=== PATIENT | female | born 1960 | race Native Hawaiian/Other Pacific Islander ===

== ENCOUNTER 2019-03-16 09:38 | Outpatient (CLI) | payer BC | END 2019-03-16 21:36 | disposition home or self-care (01) | LOC: RAD 09:38 | DX: Z01.419 Encounter for gynecological examination (general) (routine) without abnormal findings (principal); N95.8 Other specified menopausal and perimenopausal disorders ==

== ENCOUNTER 2023-06-15 09:19 | Outpatient (CLI) | payer BC | END 2023-06-15 19:01 | disposition home or self-care (01) | LOC: MRI 09:19 | PROVIDERS: ATTEND Internal Medicine | DX: R41.0 Disorientation, unspecified (principal); R41.3 Other amnesia ==